=== PATIENT | male | born 2005 | race Caucasian/White ===

== ENCOUNTER 2024-05-13 22:50 | Observation (INO) ==
--- NOTE | 2024-05-13 23:01 | Emergency Department Note ---
Impression & Plan Acute sore throat, Peritonsillar abscess ED Provider Note CHIEF COMPLAINT: Sore throat HISTORY OF PRESENT ILLNESS: This 18-year-old male patient presents to the emergency department via private vehicle for evaluation of flulike symptoms, body aches, fevers, sore throat, with swollen lymph nodes, and difficulty swallowing. He reports the sensation of a fullness in the back of his throat. He states [id number] medications have not been helping. He reports he is up-to-date on all vaccinations. REVIEW OF SYSTEMS: A review of systems was performed with positives and pertinent negatives listed in the history of present illness. All other systems were reviewed and are negative. ALLERGIES: See below MEDICATIONS: See below PMH: See below PHYSICAL EXAM: VITALS: Vitals are noted on the nurse's note and reviewed by myself. Vital signs stable. GENERAL: 18-year-old male, in no acute distress, nondiaphoretic, well-developed well-nourished. SKIN: The skin was without rashes, erythema, edema, or bruising. HEAD: Normocephalic atraumatic. EYES: Pupils equal round and reactive to light and accommodation. Conjunctivae without injection, sclerae without icterus. Extraocular movements intact. NOSE: Patent, turbinates without inflammation or discharge. No sinus tenderness. MOUTH: Mucous membranes moist. Right tonsillar hypertrophy. Pharynx with erythema, no exudate. Uvula midline, airway patent. NECK: Supple without nuchal rigidity. Bilateral cervical lymphadenopathy, right worse than left. No JVD. HEART: Tachycardia with regular rhythm, without murmurs gallops or rubs. LUNGS: Clear to auscultation bilaterally without wheezes, rales or rhonchi. No retractions or accessory muscle use. MUSCULOSKELETAL: No muscle atrophy, erythema, or edema noted. Normal gait. Strength 5/5 throughout. NEURO: Patient was alert and oriented to person place and time. No focal neurological deficits. MEDICAL DECISION MAKING: The patient is a 18-year-old male who arrives to the emergency department for evaluation of the above-stated complaint. A saline lock was established, CBC, CMP, Monospot were obtained. CBC shows leukocytosis 20.60, with a stable hemoglobin and hematocrit. CMP shows no concerning findings. Monospot negative. Upper respiratory BioFire panel negative. Group A strep negative. CT imaging of the soft tissue of the neck was performed to rule out peritonsillar abscess, which was positive for a right sided 1.3 x 1.7 x 0.7 cm, FLOWER PLANTER. Patient was provided 1 L of IV fluids, 10 mg of IV dexamethasone, and IV clindamycin. I spoke with Dr. Dos Santos, from ENT who agreed to evaluate the patient at bedside. An attempt was made to drain the abscess, however no drainage was obtained. The patient is currently unable to swallow his own secretions. He will require admission until able to do so. He will receive IV antibiotics, fluids, and steroids. He was admitted to [facility]ill[facility]. Please refer to his documentation for further patient workup and care. DIFFERENTIAL DIAGNOSIS: Viral syndrome, tonsillitis, streptococcal pharyngitis, mononucleosis, peritonsillar abscess, retropharyngeal abscess, otitis, pneumonia, influenza, as well as other pathologies. The chart was completed utilizing [employer] Speech voice recognition software. Grammatical errors, random word insertions, pronoun errors, and incomplete sentences are an occasional consequence of this system due to software limitations, ambient noise, and hardware issues. Any formal questions or concerns about the content, text, or information contained within the body of this dictation should be directly addressed to the physician for clarification. Past Med/Surg History Problem List (Updated 05/14/24 @ 01:47 by JAMAL Calles) Peritonsillar abscess (Acute) Acute sore throat (Acute) Social History Smoking Status: Never smoker Preferred Language: Citizen Of [place] Feels Safe at Home: Yes Allergies Allergies Allergy/AdvReac Type Severity Reaction Status Date / Time amoxicillin AdvReac Rash Unverified 05/14/24 00:19 Home Meds Home Medications Medication Instructions Recorded Confirmed Slit See Rx Instructions .Route .COMPLEX 05/14/24 05/14/24 fluticasone propionate 50 50 mcg intranasal DAILY PRN 05/14/24 05/14/24 mcg/actuation nasal ALLERGIES spray,suspension (Flonase Allergy Relief) levocetirizine 5 mg tablet (Xyzal) 5 mg PO DAILY PRN ALLERGIES 05/14/24 05/14/24 Results & Data (ED) Vital Signs Vital Signs - 24 hr 05/13/24 22:51 05/13/24 22:54 05/14/24 00:28 Temperature 37 C Temperature Source Temporal Artery Scan Pulse Rate 117 H 124 H Respiratory Rate 16 16 Respiratory Effort / Characteristics Non-Labored Respiratory Depth Normal Blood Pressure 143/90 H 147/99 H Blood Pressure Mean 107 115 Pulse Oximetry 96 98 Oxygen Delivery Method Room Air Room Air Sepsis Recent Fever Within 48 Hours No Sepsis New/Unexplained Change in Mental Status No Sepsis Action Taken by Nursing No Action Required 05/14/24 00:51 05/14/24 01:26 05/14/24 01:34 Temperature Temperature Source Pulse Rate 116 H Respiratory Rate 18 Respiratory Effort / Characteristics Non-Labored Respiratory Depth Normal Blood Pressure 136/85 127/91 Blood Pressure Mean 102 103 Pulse Oximetry 98 Oxygen Delivery Method Sepsis Recent Fever Within 48 Hours Sepsis New/Unexplained Change in Mental Status Sepsis Action Taken by Long-Term Medications Current Medication List: was personally reviewed by me Laboratory Data Attestation: I reviewed the patient's lab results. 05/13/24 23:25 05/13/24 23:25 Lab Results 05/13/24 Range/Units 23:25 WBC 20.60 H (4.8-10.8) K/ul RBC 4.76 (4.70-6.10) M/uL Hgb 14.8 (14.0-18.0) g/dl Hct 42.6 (42.0-52.0) % MCV 89.5 (80.0-100.0) fL MCH 31.1 (25.0-34.0) pg MCHC 34.7 (32.0-36.0) g/dL RDW Std Deviation 42.5 (36.4-46.3) fL RDW Coeff of Enoc 12.9 (11.5-14.5) % Plt Count 183 (130-400) K/uL MPV 10.0 (9.4-12.4) fL Immature Gran % (Auto) 0.8 % Neut % (Auto) 74.8 % Lymph % (Auto) 11.8 % [place] % (Auto) 12.2 % Eos % (Auto) 0.1 % Baso % (Auto) 0.3 % Neut # (Auto) 15.38 H (1.40-6.50) K/uL Lymph # (Auto) 2.43 (1.20-3.40) K/uL [place] # (Auto) 2.52 H (0.11-0.59) K/uL Eos # (Auto) 0.03 (0.00-0.50) K/uL Baso # (Auto) 0.07 (0.00-0.20) K/uL Immature Gran # (Auto) 0.17 (0.01-0.20) K/uL Sodium 139 (136-145) mmol/L Potassium 3.5 (3.5-5.1) mmol/L Chloride 105 (98-107) mmol/L Carbon Dioxide 28 (21-32) mmol/L Anion Gap 6 (3-11) BUN 12 (6-23) mg/dl Creatinine 1.01 (0.6-1.4) mg/dl Est Cr Clr Drug Dosing 149.7 ml/min eGFR 109.19 BUN/Creatinine Ratio 11.9 (10-20) Glucose 129 H (70-99(Fasting)) mg/dl Calcium 9.1 (8.6-10.3) mg/dl Total Bilirubin 1.0 (0.2-1.0) mg/dl AST 15 (13-39) U/L ALT 21 (7-52) U/L Alkaline Phosphatase 68 (34-104) U/L Total Protein 6.9 (6.0-8.3) gm/dl Albumin 4.3 (3.4-5.0) gm/dl Globulin 2.6 (2.5-4.0) gm/dl Albumin/Globulin Ratio 1.7 (0.9-2) Adenovirus (PCR) Not Detected (NotDetected) B. pertussis DNA (PCR) Not Detected (NotDetected) B.parapertussis DNA PCR Not Detected (NotDetected) C. pneumoniae DNA (PCR) Not Detected (NotDetected) Coronavirus OC43 (PCR) Not Detected (NotDetected) Coronavirus HKU1 (PCR) Not Detected (NotDetected) Coronavirus 229E (PCR) Not Detected (NotDetected) SARS-CoV-2 (PCR) Not Detected (NotDetected) Coronavirus NL63 (PCR) Not Detected (NotDetected) Monoscreen Negative (Negative) Human Metapneumovir PCR Not Detected (NotDetected) Influenza Type A (PCR) Not Detected (NotDetected) Influenza Type B (PCR) Not Detected (NotDetected) M. pneumoniae (PCR) Not Detected (NotDetected) Parainfluenza 1 (PCR) Not Detected (NotDetected) Parainfluenza 2 (PCR) Not Detected (NotDetected) Parainfluenza 3 (PCR) Not Detected (NotDetected) Parainfluenza 4 (PCR) Not Detected (NotDetected) RSV (PCR) Not Detected (NotDetected) Entero/Rhino (PCR) Not Detected (NotDetected) Group A Strep (PCR) NOT DETECTED (NotDetected) Administered Medications Sodium Chloride (Nss) 1,000 mls @ 999 mls/hr IV .Q1H1M ONE Stop: 05/14/24 02:18 Last Admin: 05/14/24 01:29 Dose: 999 mls/hr Documented By: SANTOS Discontinued Medications Dexamethasone Sodium Phosphate (DexamethasonePf 10 Mg/Ml Vial) 10 mg IV NOW ONE Stop: 05/13/24 23:09 Last Admin: 05/13/24 23:21 Dose: 10 mg Documented By: SANTOS Sodium Chloride (Nss) 1,000 mls @ 999 mls/hr IV .Q1H1M ONE Stop: 05/14/24 00:08 Last Infusion: 05/14/24 00:31 Dose: Infused Documented By: Admin: 05/13/24 23:22 Dose: 999 mls/hr Documented By: SANTOS Clindamycin Phosphate (Cleocin/D5w) 900 mg in 50 mls @ 100 mls/hr IV NOW ONE Stop: 05/14/24 00:31 Last Infusion: 05/14/24 01:00 Dose: Infused Documented By: Admin: 05/14/24 00:25 Dose: 100 mls/hr Documented By: SANTOS Ioversol (Optiray 320 100ml) 94 ml IV ONCE ONE Stop: 05/13/24 23:58 Last Admin: 05/13/24 23:57 Dose: 94 ml Documented By: BREANNE Lidocaine/Epinephrine (Lidocaine 1%/Epinephrine 1:100,000 50 Ml Vial) Confirm Administered Dose 1 ml .ROUTE .STK-MED ONE Stop: 05/14/24 00:59 Last Admin: 05/14/24 01:26 Dose: Not Given Documented By: SANTOS Imaging Data Attestation: I personally reviewed and interpreted this imaging study as follows: Radiologist's Impression: Soft Tissue Neck CT 05/13/24 23:16 Exam(s): CT NECK With Contrast IV Amt: 94 cc's optiray 320 EXAM: CT Neck With Intravenous Contrast CLINICAL HISTORY: 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 TECHNIQUE: Axial computed tomography images of the neck with intravenous contrast. CTDI is 21 mGy and DLP is 640 mGy-cm. Automated exposure control was utilized for the study. A dose lowering technique was utilized adhering to the principles of ALARA. CONTRAST: Patient received 94 cc's optiray 320 of IV contrast COMPARISON: None FINDINGS: Nasal cavity/septum: Mass like structure along the posterior nasal cavity/nasopharynx, nonspecific. Consider contrast-enhanced MRI for further evaluation. Oropharynx: Enlarged palatine tonsils, concerning for tonsillitis. Right peritonsillar abscess measuring approximately 1.3 x 1.7 x 0.7 cm. Hypopharynx: Unremarkable. Larynx: Unremarkable. Normal epiglottis. Trachea: Unremarkable. Retropharyngeal space: Unremarkable. Submandibular/parotid glands: Unremarkable. Glands are normal in size. Thyroid: Unremarkable. No enlarged or calcified nodules. Bones/joints: No acute fracture. Soft tissues: Unremarkable. Vasculature: No acute findings. Lymph nodes: Enlarged cervical lymph nodes may be reactive. Sinuses: Polyps versus mucous retention cysts of the maxillary sinuses. Mild mucosal thickening in the sphenoid sinuses. Lung apices: Unremarkable as visualized. IMPRESSION: 1. Enlarged palatine tonsils, concerning for tonsillitis. Right peritonsillar abscess measuring approximately 1.3 x 1.7 x 0.7 cm. 2. Mass like structure along the posterior nasal cavity/nasopharynx, nonspecific. Consider contrast-enhanced MRI for further evaluation. Electronically signed by: Jd Selby M.D. 05/14/24 00:13 AM Discharge Plan Visit Data Chief Complaint: Sore Throat Stated Complaint: SWOLLEN GLANDS, SORE THROAT, HARD TO SWALLOW ED Provider: Clara Rodriguez ED Midlevel Provider: Mary Anne Be Discharge Problem: Acute sore throat, Peritonsillar abscess Forms Stand Alone Forms: [facility] Prescriptions Prescriptions: No Action fluticasone propionate [Flonase Allergy Relief] 50 mcg/actuation [place],Suspension 50 mcg INTRANASAL DAILY PRN (Reason: ALLERGIES ) Rx Instructions: OTC levocetirizine [Xyzal] 5 mg Tablet 5 mg PO DAILY PRN (Reason: ALLERGIES) Rx Instructions: OTC Slit See Rx Instructions .ROUTE .COMPLEX Rx Instructions: SLIT - A ALLERGY LIQUID DROP TAKEN SUBCUTANEAOUSLY- PT DID NOT KNOW NAME Referrals Referrals: PCP,NO [Physician] -
[2024-05-13] MEDS: dexAMETHasone**PF** 10 MG/ML VIAL IV ONE (23:21)
[2024-05-13] MEDS: SODIUM CHLORIDE 0.9% 1,000 ML IV ONE (23:22)
[2024-05-13 23:44] LABS: Basophils # (auto) 0.07 K/uL (0.00-0.20); Basophils % (auto) 0.3 %; Eosinophils # (auto) 0.03 K/uL (0.00-0.50); Eosinophils % (auto) 0.1 %; Hematocrit (blood only) 42.6 % (42.0-52.0); Hemoglobin 14.8 g/dl (14.0-18.0); Immature Granulocytes # (auto) 0.17 K/uL (0.01-0.20); Immature Granulocytes % (auto) 0.8 %; Lymphocytes # (auto) 2.43 K/uL (1.20-3.40); Lymphocytes % (auto) 11.8 %; Mean Corpuscular Hemoglobin 31.1 pg (25.0-34.0); Mean Corpuscular Hgb Conc 34.7 g/dL (32.0-36.0); Mean Corpuscular Volume 89.5 fL (80.0-100.0); Monocytes # (auto) 2.52 K/uL (0.11-0.59); Monocytes % (auto) 12.2 %; Neutrophils # (auto) 15.38 K/uL (1.40-6.50); Neutrophils % (auto) 74.8 %; Platelet Count 183 K/uL (130-400); RDW Coefficient of Variation 12.9 % (11.5-14.5); RDW Standard Deviation 42.5 fL (36.4-46.3); Red Blood Count 4.76 M/uL (4.70-6.10)
[2024-05-13] MEDS: OPTIRAY 320 100ml IV ONE (23:57)
[2024-05-13 23:59] LABS: Albumin Globulin Ratio 1.7 (0.9-2); Albumin Level 4.3 gm/dl (3.4-5.0); BUN Creatinine Ratio 11.9 (10-20); Calcium 9.1 mg/dl (8.6-10.3); Creatinine Clr Calc Pharmacy 149.7 ml/min; Globulin 2.6 gm/dl (2.5-4.0); Potassium 3.5 mmol/L (3.5-5.1); Total Protein 6.9 gm/dl (6.0-8.3)
--- NOTE | 2024-05-14 00:14 | CT Scan Report ---
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 TECHNIQUE: Axial computed tomography images of the neck with intravenous contrast. CTDI is 21 mGy and DLP is 640 mGy-cm. Automated exposure control was utilized for the study. A dose lowering technique was utilized adhering to the principles of ALARA. CONTRAST: Patient received 94 cc's optiray 320 of IV contrast COMPARISON: None FINDINGS: Nasal cavity/septum: Mass like structure along the posterior nasal cavity/nasopharynx, nonspecific. Consider contrast-enhanced MRI for further evaluation. Oropharynx: Enlarged palatine tonsils, concerning for tonsillitis. Right peritonsillar abscess measuring approximately 1.3 x 1.7 x 0.7 cm. Hypopharynx: Unremarkable. Larynx: Unremarkable. Normal epiglottis. Trachea: Unremarkable. Retropharyngeal space: Unremarkable. Submandibular/parotid glands: Unremarkable. Glands are normal in size. Thyroid: Unremarkable. No enlarged or calcified nodules. Bones/joints: No acute fracture. Soft tissues: Unremarkable. Vasculature: No acute findings. Lymph nodes: Enlarged cervical lymph nodes may be reactive. Sinuses: Polyps versus mucous retention cysts of the maxillary sinuses. Mild mucosal thickening in the sphenoid sinuses. Lung apices: Unremarkable as visualized. IMPRESSION: 1. Enlarged palatine tonsils, concerning for tonsillitis. Right peritonsillar abscess measuring approximately 1.3 x 1.7 x 0.7 cm. 2. Mass like structure along the posterior nasal cavity/nasopharynx, nonspecific. Consider contrast-enhanced MRI for further evaluation. Electronically signed by: Jd Selby M.D. 05/14/24 00:13 AM
[2024-05-14 00:25] LABS: Adenovirus PCR Not Detected (NotDetected); Bordetella parapertussis PCR Not Detected (NotDetected); Bordetella pertussis PCR Not Detected (NotDetected); Chlamydia pneumoniae PCR Not Detected (NotDetected); Coronavirus 229E PCR Not Detected (NotDetected); Coronavirus CoV-2 (COVID19)PCR Not Detected (NotDetected); Coronavirus HKU1 PCR Not Detected (NotDetected); Coronavirus NL63 PCR Not Detected (NotDetected); Coronavirus OC43PCR Not Detected (NotDetected); Human Metapneumovirus PCR Not Detected (NotDetected); Influenza A PCR Not Detected (NotDetected); Influenza B PCR Not Detected (NotDetected); Mycoplasma pneumoniae PCR Not Detected (NotDetected); Parainfluenza Virus 1 PCR Not Detected (NotDetected); Parainfluenza Virus 2 PCR Not Detected (NotDetected); Parainfluenza Virus 3 PCR Not Detected (NotDetected); Parainfluenza Virus 4 PCR Not Detected (NotDetected); Respiratory Syncytial VirusPCR Not Detected (NotDetected); Rhinovirus/Enterovirus PCR Not Detected (NotDetected)
[2024-05-14] MEDS: CLINDAMYCIN/D5W 900 MG/50 ML BAG IV ONE (00:25)
[2024-05-14] MEDS: LIDOCAINE 1%/EPINEPHRINE 1:100,000 50 ML VIAL ONE (01:26)
[2024-05-14] MEDS: SODIUM CHLORIDE 0.9% 1,000 ML IV ONE (01:29)
--- NOTE | 2024-05-14 02:01 | ENT Consultation ---
Date of Consultation May 14, 2024 Assessment & Plan (1) Peritonsillar cellulitis: Symptoms consistent with peritonsillar process. Examination and CT scan more consistent with PTC vice DETECTIVE CAPTAIN. Discussed options of obsevation with corticosteroids and antibiotics with or without needle I&D. Patient elected to attempt I&D even though I suspected no abscess for definitive diagnosis. No abscess pocket located. Discussed case with attending provider. I recommend he receive corticosteroids, NSAIDs, narcotic pain medications and Clindamycin or augmentin. Recommend no discharge until he can tolerate PO. Follow up information for my office for worsening and possible interval tonsillectomy provided to patient. History of Present Illness Reason for Consultation: sore throat. History of Present Illness 18 year old with history of 5-6 episodes of streptococcal pharyngitis reports worsening sore throat. Right slightly worse that left but he reports both side. He also reports intolerance of swallowing PO or his own secretions and voice changes. He has not had a previous DETECTIVE CAPTAIN but reports previous similar episodes. He is otherwise healthy. His symptoms began 1-2 days ago. Allergies Allergy/AdvReac Type Severity Reaction Status Date / Time amoxicillin AdvReac Rash Unverified 05/14/24 00:19 Home Medications Medication Instructions Recorded Confirmed Type Slit See Rx Instructions .Route .COMPLEX 05/14/24 05/14/24 History fluticasone propionate 50 50 mcg intranasal DAILY PRN 05/14/24 05/14/24 History mcg/actuation nasal ALLERGIES spray,suspension (Flonase Allergy Relief) levocetirizine 5 mg tablet (Xyzal) 5 mg PO DAILY PRN ALLERGIES 05/14/24 05/14/24 History Patient History Social History Smoking Status: Never smoker Preferred Language: Croatian Feels Safe at Home: Yes Review of Systems Review of Systems: No pertinent ROS positives unless otherwise mentioned in the HPI Physical Exam Physical Exam: Ears: Normal pinna Nose: No external deformity Neck: trachea midline Neuro: Alert and oriented, Moves all 4 extremities, Symmetric and normal facial nerve function Derm: No lesions noted on face or neck Cardiovascular: No JVD Oral: Very slight right tonsillar enlargement or medialization. No uvular deviation. Both tonsils erythematous and inflamed. PROCEDURE NOTE: On CT patient had a 1.7 cm DETECTIVE CAPTAIN by report of radiology. On exam he had right tonsillar enlargement. After verbal consent and time out the patient was injected with 2% lidocaine with 1:100,000 epinephrine into the right anterior tonsillar pillar. Approximately 4 mLs were injected. The patient was observed for 5 minutes to allow the medicine to work. Next a 16 gauge needle with a 10 mL syringe was inserted through the palatoglossus muscle into the bertrand-tonsillar space under vacuum. This was performed at one additional locations in a vertical line parallel to the medial tonsillar border into the peritonsillar space. Patient tolerated the procedure very well with no complications. No purulent material was found. Results & Data Vital Signs (Past 12 Hours) Vital Signs Temp Pulse Resp BP Pulse Ox O2 Del Method 05/14/24 01:34 127/91 05/14/24 01:26 116 H 18 136/85 98 05/14/24 00:28 124 H 16 147/99 H 98 Room Air 05/13/24 22:54 37 C 117 H 16 143/90 H 96 Room Air Diagnostic Findings independently interpreted CT soft tissue neck. Radiology reports a right sided DETECTIVE CAPTAIN. On my read appears more to be an early phlegmon. I do not appreciate a distinct abscess pocket. Both tonsils are enlarged and demonstrate inflammation. PG Care Time/CCT Total # of Minutes Spent Total Time Spent with Patient: Total time spent is greater than 50% in coordination of care (as documented) at patient's floor/unit and/or counseling patient: 45 minutes. Coding Level of Care Code 25338 IN/OBS CONSULT LVL 3,45M Diagnoses Peritonsillar cellulitis J36 CPT Codes Drainage of Tonsil Abscess - 61045 ([id number])
[2024-05-14] MEDS: LIDOCAINE 1% LOCAL 20 ML VIAL ONE (03:10)
[2024-05-14] MEDS ORDERED: MELATONIN 3 MG TAB PO PRN (03:15)
[2024-05-14] MEDS ORDERED: POLYETHYLENE (MIRALAX) 17 GM PACK PO PRN (03:15)
[2024-05-14] MEDS ORDERED: FLUTICASONE PROPIONATE NA SPR 16 GM BTL PRN (03:15)
[2024-05-14] MEDS ORDERED: MAGNESIUM HYDROXIDE SUSP 30 ML UDC PO PRN (03:15)
[2024-05-14] MEDS ORDERED: ONDANSETRON INJ 2 MG/ML 2 ML VIAL IV PRN (03:15)
[2024-05-14] MEDS ORDERED: ALUMINUM/MAGNESIUM SUSP 30 ML UDC PO PRN (03:15)
[2024-05-14] MEDS ORDERED: CETIRIZINE HCL 10 MG TABLET PO PRN (03:19)
--- NOTE | 2024-05-14 05:31 | History & Physical Report ---
Date of Service May 14, 2024 Assessment & Plan (1) Peritonsillar abscess: Plan 18 yo male no significant PMHx admitted with peritonsillar abscess #Peritonsilar abscess abscess vs cellulitis given inability to locate a pocket to drain continue clindamycin in setting of amoxicillin allergy will give one additional dose of dexamethasone, additional steroids per clinical response pain control PRN once able to tolerate PO well likely able to transition and discharge FENGI: regular Code status: full DVT prophylaxis: low risk Isolation: none Disposition: medical Admission and Anticipated Discharge Date Admission Date: May 14, 2024 History of Present Illness Primary Care Provider: [facility] 18 yo male with no significant past medical history admitted with 1 day history of sore throat and difficulty swallowing. CT performed consistent with per itonsillar abscess. ENT was consulted and attempted needle I&D unsuccessfully. Recommended antibiotics, steroids, pain control. At the time of our encounter the patient continued to report pain, vocal changes. At this point, he was able to take a sip of water and swallow which he was unable to do upon presentation to the ED. ED course: CT neck "Enlarged palatine tonsils, concerning for tonsillitis. Right peritonsillar abscess measuring approximately 1.3 x 1.7 x 0.7 cm." Given 10mg IV dexamethasone, 900mg IV clindamycin ENT consulted, attempted I&D, was unsuccessful CBC significant for leukocytosis Allergies Allergy/AdvReac Type Severity Reaction Status Date / Time amoxicillin AdvReac Rash Unverified 05/14/24 00:19 Home Medications Medication Instructions Recorded Confirmed Type Slit See Rx Instructions .Route .COMPLEX 05/14/24 05/14/24 History clindamycin HCl 300 mg capsule 300 mg PO TID 10 days #30 caps 05/14/24 Rx dexamethasone 2 mg tablet See Taper PO DAILY #15 tabs 05/14/24 Rx fluticasone propionate 50 50 mcg intranasal DAILY PRN 05/14/24 05/14/24 History mcg/actuation nasal ALLERGIES spray,suspension (Flonase Allergy Relief) levocetirizine 5 mg tablet (Xyzal) 5 mg PO DAILY PRN ALLERGIES 05/14/24 05/14/24 History Past Med/Surg History Problem List (Updated 05/14/24 @ 11:35 by Lorraine Louis PA-C) Peritonsillar cellulitis Peritonsillar abscess (Acute) Acute sore throat (Acute) Social History Smoking Status: Never smoker Hx Alcohol Use: No Hx Substance Use: No Preferred Language: [place] Leonean Communication Ability: Effective Logistics/Shipper Required: No Beliefs That Will Affect Care: None Current Living Situation: Alone Other Information That Helps Us Care for You: No Feels Safe at Home: Yes Safety Concerns: Feels Safe At This Time Review of Systems Review of Systems: reviewed, per HPI Physical Exam Physical Exam: Constitutional: no acute distress, +hoarse voice HEENT: +b/l R>L tonsillar swelling, airway remains patent, +erythema to oropharynx CV: regular rhythm, no murmur appreciated, extremities well-perfused, no LE edema Resp: CTABL, no wheezes/rales/rhonchi appreciated, no increased work of breathing GI: nondistended MSK: no gross deformities appreciated Skin: warm, dry, no rash appreciated Neuro: alert, oriented, no focal neurologic deficit appreciated Results & Data Results & Data Vital Signs (Past 12 Hours) Vital Signs Temp Pulse Pulse Resp BP BP Pulse Ox 05/14/24 04:33 133/76 05/14/24 03:27 118 H 16 126/78 98 05/14/24 02:00 108 H 18 145/93 H 98 05/14/24 01:34 127/91 05/14/24 01:26 116 H 18 136/85 98 05/14/24 00:28 124 H 16 147/99 H 98 05/13/24 22:54 37 C 117 H 16 143/90 H 96 O2 Del Method 05/14/24 04:33 05/14/24 03:27 Room Air 05/14/24 02:00 Room Air 05/14/24 01:34 05/14/24 01:26 05/14/24 00:28 Room Air 05/13/24 22:54 Room Air Code Status & VTE Plan VTE Prophylaxis Plan VTE Prophylaxis will be ordered: Yes Supervising Physician Co-Signing Physician Notes Attending addendum: I have physically seen this patient, have supervised the medical residents activities, and agree with the H&P unless as otherwise noted. Assessment and Plan: Peritonsillar abscess- Follow culture sensitivity There was an attempt to have ENT drain patient, however unable to drain as noted Given dexamethasone 10 mg IV and clindamycin 900 mg IV from the ED Continue dexamethasone 6 mg IV in the morning and clindamycin at 100 mg IV every 8 hours Consult ENT to follow Discharge to home when patient is adequately improved Diet to be advanced from liquid to full as tolerated Resident Activity Tracking Resident Involvement: Resident Care Provided Care Provided: Adult [facility] Medicine
[2024-05-14] MEDS: ACETAMINOPHEN 325 MG TAB PO PRN (06:15)
[2024-05-14 07:37] VITALS: RESP 18
[2024-05-14] MEDS: CLINDAMYCIN/D5W 600 MG/50 ML BAG IV SCH (08:14)
[2024-05-14] MEDS: dexAMETHasone 6 MG in SYRINGE 0 ML IV SCH (08:14)
[2024-05-14 10:01] VITALS: BP 114/77; PULSE 93; TEMP 97.7; O2SAT 98
--- NOTE | 2024-05-14 11:39 | Discharge Summary ---
Discharge Summary Date of Service May 14, 2024 Principal Dx & Hospital Course #1 = Principal Diagnosis (1) Peritonsillar abscess: Plan 18 yo male no significant PMHx admitted with peritonsillar abscess #Peritonsilar abscess CT neck "Enlarged palatine tonsils, concerning for tonsillitis. Right peritonsillar abscess measuring approximately 1.3 x 1.7 x 0.7 cm." abscess vs cellulitis given inability to locate a pocket to drain Patient was evaluated by ENT in the ER, attempted to drain and was not able to. Recommended inpatient stay with steroids and antibiotics until he was able to tolerate PO intake. Follow up with ENT for possible tonsillectomy. He was given dexamethasone and clindamycin, tolerated breakfast AM 1/5 and eager to go home. Discharged on Clindamycin TID and dexamethasone taper. Family updated at bedside, advised ENT follow up and they would like to follow with his primary ENT with [facility]. Discharge to home today Notes For Next Care Provider Will need ENT follow up either local or back home Medication Changes From Visit Clindamycin 600mg TID dexamethasone taper Admission HPI Per Admitting Provider 18 yo male with no significant past medical history admitted with 1 day history of sore throat and difficulty swallowing. CT performed consistent with peritonsillar abscess. ENT was consulted and attempted needle I&D unsuccessfully. Recommended antibiotics, steroids, pain control. At the time of our encounter the patient continued to report pain, vocal changes. At this point, he was able to take a sip of water and swallow which he was unable to do upon presentation to the ED. ED course: CT neck "Enlarged palatine tonsils, concerning for tonsillitis. Right peritonsillar abscess measuring approximately 1.3 x 1.7 x 0.7 cm." Given 10mg IV dexamethasone, 900mg IV clindamycin ENT consulted, attempted I&D, was unsuccessful CBC significant for leukocytosis Discharge Exam General: NAD, VS as above HEENT: MMM, area from attempted I&D visualized, tonsils minimally enlarged, R>L. tolerating secretions without issue Resp: normal respiratory effort, lungs clear to auscultation CV: RRR, no murmur, Extremities: Moves all extremities, no edema Neuro: A&O x3, Discharge Plan Discharge Items Patient Disposition: Home - Self-Care Reason For Visit: PERITONSILLAR ABSCESS Discharge Diagnosis: Peritonsillar cellulitis Activity: As commented below Activity Comment: take it easy until you are feeling better Weightbearing: Full weightbearing Non-emergency contact: Primary Care Provider and Specialist Call non-emergency contact if: you have any medication questions, your symptoms worsen, your pain is unusual for you and your temperature is above 101 Follow-up/Referrals: [facility] [Primary Care Provider] - (follow up next week ) Jim Dos Santos MD [Physician] - (follow up if unable to with home ENT ) Diet: Regular Addtl Attending Provider Instructions: Mr. Allen, You were hospitalized after having difficulty swallowing your own secretion with swollen tonsils. You were seen by ENT who attempted to drain them at bedside but were unsuccesful. You received IV antibiotics and steroids and have greatly improved. ENT is recommending follow for recheck and to discuss possible tonsil removal. If your local ENT cannot accomidate this please call the number above. You should also be seen by your PCP next week - either back home or [facility]. Please call to make this appointment. Recommendations on discharge: * Take it easy over the next few days - your body needs time to heal * make sure you are staying hydrated * avoid scratchy/shrap foods - like pretzels and chips until you are feeling better * continue steroids (prednisone) - first dose AM 1 * Continue antibiotics (clindamcyin) - three times a day, next dose this afternoon 05/14. Take this with food * avoid smoking or vaping. * take ibuprofen or tylenol - as needed for pain or fever Activity: You can do normal everyday activities as your body allows. Take rest breaks if you feel tired. Do not overexert. Stop activity if you have pain, shortness of breath or feel dizzy. Follow-up appointments: Make an appointment with your primary care physician within one week of dischar ge. A copy of this summary will be sent to them. Every time you see your primary care physician, or any other doctor, bring your medication list, and a list of questions. CONTACT YOUR PRIMARY CARE PROVIDER if you experience any of the following: Shortness of breath or difficulty breathing Fevers or chills Feeling tired with normal activity or experiencing dizziness or fainting Difficulty following your treatment plan, or difficulty taking medications CALL 911 OR GO TO THE EMERGENCY DEPARTMENT if you experience any of the followi ng: Severe abdominal pain or nausea/vomiting Severe chest pain, or chest pain that radiates (moves) to your jaw or arm Sudden, severe shortness of breath or difficulty breathing Thank you for allowing us to participate in your care. Lorraine Louis PA-C Pending Studies at Discharge: No Stand-Alone Forms: My [facility], Smoking Cessation Medications and DC Order Prescriptions: New clindamycin HCl 300 mg capsule 300 mg PO TID 10 Days Qty: 30 0RF dexamethasone 2 mg tablet See Taper PO DAILY Qty: 15 0RF Taper: Taper, Blank 6 mg DAILY for 2 Days 4 mg DAILY for 3 Days 2 mg DAILY for 3 Days Continued fluticasone propionate [Flonase Allergy Relief] 50 mcg/actuation [place],Suspension 50 mcg INTRANASAL DAILY PRN (Reason: ALLERGIES ) Rx Instructions: OTC levocetirizine [Xyzal] 5 mg Tablet 5 mg PO DAILY PRN (Reason: ALLERGIES) Rx Instructions: OTC Slit See Rx Instructions .ROUTE .COMPLEX Rx Instructions: SLIT - A ALLERGY LIQUID DROP TAKEN SUBCUTANEAOUSLY- PT DID NOT KNOW NAME Discharge Orders: Discharge Order (Routine); Ordered 05/14/24 Ordered By: Lorraine Dowell/Other Patient Handouts: ED Peritonsillar Abscess Admission Data Admit Date/Time: 05/14/24 02:01 Attending Provider: Yovanny Lara Admit Provider: Hawk Grullon Primary [facility] Other Providers: Chalino Guillory Other Interventions: Discharge Summary Assessment (RN) Last Done: 05/14/24 12:08 Hospital Stay Data Consultations 05/14/24 01:35 ED Decision to Admit Stat Diagnostic Imagining Performed Soft Tissue Neck CT 05/13/24 23:16 Exam(s): CT NECK With Contrast IV Amt: 94 cc's optiray 320 EXAM: CT Neck With Intravenous Contrast CLINICAL HISTORY: Reason for exam: r/o captain room service. TECHNIQUE: Axial computed tomography images of the neck with intravenous contrast. CTDI is 21 mGy and DLP is 640 mGy-cm. Automated exposure control was utilized for the study. A dose lowering technique was utilized adhering to the principles of ALARA. CONTRAST: Patient received 94 cc's optiray 320 of IV contrast COMPARISON: None FINDINGS: Nasal cavity/septum: Mass like structure along the posterior nasal cavity/nasopharynx, nonspecific. Consider contrast-enhanced MRI for further evaluation. Oropharynx: Enlarged palatine tonsils, concerning for tonsillitis. Right peritonsillar abscess measuring approximately 1.3 x 1.7 x 0.7 cm. Hypopharynx: Unremarkable. Larynx: Unremarkable. Normal epiglottis. Trachea: Unremarkable. Retropharyngeal space: Unremarkable. Submandibular/parotid glands: Unremarkable. Glands are normal in size. Thyroid: Unremarkable. No enlarged or calcified nodules. Bones/joints: No acute fracture. Soft tissues: Unremarkable. Vasculature: No acute findings. Lymph nodes: Enlarged cervical lymph nodes may be reactive. Sinuses: Polyps versus mucous retention cysts of the maxillary sinuses. Mild mucosal thickening in the sphenoid sinuses. Lung apices: Unremarkable as visualized. IMPRESSION: 1. Enlarged palatine tonsils, concerning for tonsillitis. Right peritonsillar abscess measuring approximately 1.3 x 1.7 x 0.7 cm. 2. Mass like structure along the posterior nasal cavity/nasopharynx, nonspecific. Consider contrast-enhanced MRI for further evaluation. Electronically signed by: Jd Selby M.D. 05/14/24 00:13 AM Pending Results Patient Have Any Pending Studies at Discharge: No Discharge Instructions Given to Patient (Per Discharging Provider) Mr. Allen, You were hospitalized after having difficulty swallowing your own secretion with swollen tonsils. You were seen by ENT who attempted to drain them at bedside but were unsuccesful. You received IV antibiotics and steroids and have greatly improved. ENT is recommending follow for recheck and to discuss possible tonsil removal. If your local ENT cannot accomidate this please call the number above. You should also be seen by your PCP next week - either back home or [facility]. Please call to make this appointment. Recommendations on discharge: * Take it easy over the next few days - your body needs time to heal * make sure you are staying hydrated * avoid scratchy/shrap foods - like pretzels and chips until you are feeling better * continue steroids (prednisone) - first dose AM 1/6 * Continue antibiotics (clindamcyin) - three times a day, next dose this afternoon 05/14. Take this with food * avoid smoking or vaping. * take ibuprofen or tylenol - as needed for pain or fever Activity: You can do normal everyday activities as your body allows. Take rest breaks if you feel tired. Do not overexert. Stop activity if you have pain, shortness of breath or feel dizzy. Follow-up appointments: Make an appointment with your primary care physician within one week of discharge. A copy of this summary will be sent to them. Every time you see your primary care physician, or any other doctor, bring your medication list, and a list of questions. CONTACT YOUR PRIMARY CARE PROVIDER if you experience any of the following: Shortness of breath or difficulty breathing Fevers or chills Feeling tired with normal activity or experiencing dizziness or fainting Difficulty following your treatment plan, or difficulty taking medications CALL 911 OR GO TO THE EMERGENCY DEPARTMENT if you experience any of the following: Severe abdominal pain or nausea/vomiting Severe chest pain, or chest pain that radiates (moves) to your jaw or arm Sudden, severe shortness of breath or difficulty breathing Thank you for allowing us to participate in your care. Lorraine Louis PA-C Total Time Total Time Spent Total Time Spent (In Minutes): Time spent day of discharge 25 minutes including direct patient care, medication reconciliation, documentation, review of labs and images, and coordination of care. Coding Level of Care Code INP/OBS EV SAME DAY LV 2,70MIN Diagnoses Peritonsillar abscess J36
--- NOTE | 2024-05-14 21:33 | Billing Data ---
Date of Service May 14, 2024 Coding Level of Care Code 10125 INT INP/OBS CARE
== END 2024-05-14 12:45 | disposition home or self-care (01) ==
LOC: EDINP 22:50 → ED 22:50 → SUATTDRO 05-14 02:01 → 3E 05-14 03:15